=== PATIENT | female | born 1950 | race American Indian/Alaskan Native ===

== ENCOUNTER 2022-06-19 05:27 | Day surgery (SDC) | payer OTHER ==
[2022-06-15 11:38] VITALS: BMI 29.7
[2022-06-19 09:31] VITALS: RESP 18
[2022-06-19] MEDS ORDERED: DEXAMETHASONE SOD PHOSPHATE 10 MG/1 ML VIAL IVPUSH ONE (10:46)
[2022-06-19] MEDS ORDERED: IOHEXOL 180 MG/1 ML ML IJ ONE ×2 (10:46)
[2022-06-19] MEDS ORDERED: LIDOCAINE HCL 1%, 10 MG/ML (50 mL VIAL) NR ONE (10:47)
[2022-06-19 13:03] VITALS: BP 129/59; PULSE 66; TEMP 98
== END 2022-06-19 12:00 | disposition home or self-care (01) ==
LOC: JASU-SURG 05:27
PROVIDERS: ATTEND Pain Medicine Pain Medicine
PROC: 3E0R33Z Introduction of Anti-inflammatory into Spinal Canal, Percutaneous Approach (ICD-10-PCS; 2022-06-19)
PROC: B01BYZZ Fluoroscopy of Spinal Cord using Other Contrast (ICD-10-PCS; 2022-06-19)
PROC: 3E0R3BZ Introduction of Anesthetic Agent into Spinal Canal, Percutaneous Approach (ICD-10-PCS; principal; 2022-06-19 10:00)
DX: M54.16 Radiculopathy, lumbar region (principal)
CPT/HCPCS: 76000-TC-FY; C9803-CS; J1100; U0003; U0005

== ENCOUNTER 2022-07-20 04:19 | Day surgery (SDC) | payer OTHER ==
[2022-07-18 15:36] VITALS: BMI 29.7
[~2022-07-20 04:19] MED LIST: DEXAMETHASONE SOD PHOSPHATE 10 MG/1 ML VIAL IVPUSH ONE; IOHEXOL 180 MG/1 ML ML IJ ONE
[2022-07-20] MEDS ORDERED: SODIUM CHLORIDE 0.9% P/F 10 ML VIAL IJ ONE (12:06)
[2022-07-20] MEDS ORDERED: LIDOCAINE HCL 1% PRESERVATIVE FREE - 30ML VIAL IJ ONE (12:44)
[2022-07-20] MEDS ORDERED: IOHEXOL 180 MG/1 ML ML IJ ONE (12:49)
[2022-07-20] MEDS ORDERED: DEXAMETHASONE SOD PHOSPHATE 10 MG/1 ML VIAL IVPUSH ONE (12:50)
[2022-07-20 13:38] VITALS: BP 135/82; PULSE 75; RESP 20; TEMP 97.2
== END 2022-07-20 13:30 | disposition home or self-care (01) ==
LOC: JASU-SURG 04:19
PROVIDERS: ATTEND Pain Medicine Pain Medicine
PROC: 3E0R33Z Introduction of Anti-inflammatory into Spinal Canal, Percutaneous Approach (ICD-10-PCS; 2022-07-20)
PROC: B01BYZZ Fluoroscopy of Spinal Cord using Other Contrast (ICD-10-PCS; 2022-07-20)
PROC: 3E0R3BZ Introduction of Anesthetic Agent into Spinal Canal, Percutaneous Approach (ICD-10-PCS; principal; 2022-07-20 12:00)
DX: M54.16 Radiculopathy, lumbar region (principal); M48.061 Spinal stenosis, lumbar region without neurogenic claudication
CPT/HCPCS: 76000-TC-FY; J1100

== ENCOUNTER 2022-09-14 04:04 | Day surgery (SDC) | payer OTHER ==
[2022-09-11 17:51] VITALS: BMI 29.7
[2022-09-14] MEDS ORDERED: BUPIVACAINE HCL/PF 0.75% 10 ML VIAL ONE (07:28)
[2022-09-14] MEDS ORDERED: BUPIVACAINE HCL/PF 0.5% (5MG/ML) 10 ML VIAL ONE (07:28)
[2022-09-14] MEDS ORDERED: LIDOCAINE HCL/PF 1% SDV 5ML VIAL ONE (07:28)
[2022-09-14] MEDS ORDERED: LIDOCAINE HCL/PF 2% SDV 5ML VIAL ONE (07:40)
[2022-09-14 10:36] VITALS: RESP 18; TEMP 97.8
[2022-09-14] MEDS ORDERED: IOHEXOL 180 MG/1 ML ML IJ ONE (12:35)
[2022-09-14] MEDS ORDERED: LIDOCAINE HCL 1%, 10 MG/ML (50 mL VIAL) NR ONE (12:36)
[2022-09-14] MEDS ORDERED: BUPIVACAINE HCL/PF 0.75% 10 ML VIAL CAUD ONE (12:36)
[2022-09-14 13:33] VITALS: BP 134/84; PULSE 70
== END 2022-09-14 13:10 | disposition home or self-care (01) ==
LOC: JASU-SURG 04:04
PROVIDERS: ATTEND Pain Medicine Pain Medicine
PROC: 3E0T33Z Introduction of Anti-inflammatory into Peripheral Nerves and Plexi, Percutaneous Approach (ICD-10-PCS; 2022-09-14)
PROC: 3E0T3BZ Introduction of Anesthetic Agent into Peripheral Nerves and Plexi, Percutaneous Approach (ICD-10-PCS; principal; 2022-09-14 11:00)
DX: M47.816 Spondylosis without myelopathy or radiculopathy, lumbar region (principal)
CPT/HCPCS: 76000-TC-FY

== ENCOUNTER 2023-01-04 05:38 | Day surgery (SDC) | payer OTHER ==
[2022-12-28 17:27] VITALS: BMI 28.1
[~2023-01-04 05:38] MED LIST changes: +BUPIVACAINE HCL/PF 0.75% 10 ML VIAL NR ONE; -DEXAMETHASONE SOD PHOSPHATE 10 MG/1 ML VIAL IVPUSH ONE; -IOHEXOL 180 MG/1 ML ML IJ ONE; +LIDOCAINE 1% P/F 10 MG/ML VIAL PNB ONE
[2023-01-04] MEDS ORDERED: BUPIVACAINE HCL/PF 0.75% 10 ML VIAL ONE (07:26)
[2023-01-04] MEDS ORDERED: LIDOCAINE HCL/PF 1% SDV 5ML VIAL ONE (07:26)
[2023-01-04] MEDS ORDERED: LIDOCAINE 1% P/F 10 MG/ML VIAL PNB ONE ×3 (11:26)
[2023-01-04] MEDS ORDERED: BUPIVACAINE HCL/PF 0.75% 10 ML VIAL NR ONE (11:26)
[2023-01-04 11:57] VITALS: BP 132/72; PULSE 74; RESP 18; TEMP 98.4
== END 2023-01-04 11:59 | disposition home or self-care (01) ==
LOC: JASU-SURG 05:38
PROVIDERS: ATTEND Pain Medicine Pain Medicine
PROC: 3E0T33Z Introduction of Anti-inflammatory into Peripheral Nerves and Plexi, Percutaneous Approach (ICD-10-PCS; 2023-01-04)
PROC: BR16ZZZ Fluoroscopy of Lumbar Facet Joint(s) (ICD-10-PCS; 2023-01-04)
PROC: 3E0T3BZ Introduction of Anesthetic Agent into Peripheral Nerves and Plexi, Percutaneous Approach (ICD-10-PCS; principal; 2023-01-04 09:45)
DX: M47.816 Spondylosis without myelopathy or radiculopathy, lumbar region (principal)
CPT/HCPCS: 76000-TC-FY

== ENCOUNTER 2023-02-01 03:59 | Day surgery (SDC) | payer OTHER ==
[2023-01-30 14:38] VITALS: BMI 28.1
[~2023-02-01 03:59] MED LIST changes: +DEXAMETHASONE SOD PHOSPHATE 10 MG/1 ML VIAL IVPUSH ONE; -LIDOCAINE 1% P/F 10 MG/ML VIAL PNB ONE; +LIDOCAINE HCL 1% PRESERVATIVE FREE - 30ML VIAL IJ ONE; +LIDOCAINE HCL/PF 2% SDV 5ML VIAL INF ONE
[2023-02-01] MEDS ORDERED: BUPIVACAINE HCL/PF 0.75% 10 ML VIAL ONE (07:20)
[2023-02-01] MEDS ORDERED: LIDOCAINE HCL/PF 1% SDV 5ML VIAL ONE (07:20)
[2023-02-01 10:47] VITALS: RESP 18
[2023-02-01] MEDS ORDERED: BUPIVACAINE HCL/PF 0.75% 10 ML VIAL NR ONE (11:58)
[2023-02-01] MEDS ORDERED: LIDOCAINE HCL/PF 2% SDV 5ML VIAL INF ONE (11:58)
[2023-02-01] MEDS ORDERED: LIDOCAINE HCL 1% PRESERVATIVE FREE - 30ML VIAL IJ ONE (11:58)
[2023-02-01] MEDS ORDERED: DEXAMETHASONE SOD PHOSPHATE 10 MG/1 ML VIAL IVPUSH ONE (12:05)
[2023-02-01 12:42] VITALS: BP 146/64; PULSE 72; TEMP 98.7
[2023-02-01] MEDS ORDERED: ACETAMINOPHEN 500 MG TABLET (FP) PO PRN (15:31)
== END 2023-02-01 12:45 | disposition home or self-care (01) ==
LOC: JASU-SURG 03:59
PROVIDERS: ATTEND Pain Medicine Pain Medicine
PROC: 015B3ZZ Destruction of Lumbar Nerve, Percutaneous Approach (ICD-10-PCS; principal; 2023-02-01 12:15)
DX: M47.816 Spondylosis without myelopathy or radiculopathy, lumbar region (principal)
CPT/HCPCS: 76000-TC-FY; J1100

== ENCOUNTER 2023-03-15 03:57 | Day surgery (SDC) | payer OTHER ==
[2023-03-12 17:19] VITALS: BMI 28.1
[~2023-03-15 03:57] MED LIST changes: -BUPIVACAINE HCL/PF 0.75% 10 ML VIAL NR ONE; -DEXAMETHASONE SOD PHOSPHATE 10 MG/1 ML VIAL IVPUSH ONE
[2023-03-15] MEDS ORDERED: LIDOCAINE HCL/PF 1% SDV 5ML VIAL ONE (07:27)
[2023-03-15] MEDS ORDERED: BUPIVACAINE HCL/PF 0.75% 10 ML VIAL ONE (07:27)
[2023-03-15] MEDS ORDERED: LIDOCAINE HCL/PF 2% SDV 5ML VIAL ONE (07:27)
[2023-03-15] MEDS ORDERED: DEXAMETHASONE SOD PHOSPHATE 10 MG/1 ML VIAL ONE (07:28)
[2023-03-15] MEDS ORDERED: ACETAMINOPHEN 500 MG TABLET (FP) PO PRN (08:40)
[2023-03-15] MEDS ORDERED: LIDOCAINE HCL/PF 2% SDV 5ML VIAL INF ONE (11:46)
[2023-03-15] MEDS ORDERED: LIDOCAINE HCL 1% PRESERVATIVE FREE - 30ML VIAL IJ ONE (11:46)
[2023-03-15 13:24] VITALS: BP 150/70; PULSE 68; RESP 17; TEMP 98
== END 2023-03-15 13:00 | disposition home or self-care (01) ==
LOC: JASU-SURG 03:57
PROVIDERS: ATTEND Pain Medicine Pain Medicine
PROC: 015B3ZZ Destruction of Lumbar Nerve, Percutaneous Approach (ICD-10-PCS; principal; 2023-03-15 10:30)
DX: M47.816 Spondylosis without myelopathy or radiculopathy, lumbar region (principal)
CPT/HCPCS: 76000-TC-FY; J1100